=== PATIENT | male | born 2005 | race Caucasian/White ===

== ENCOUNTER 2023-02-27 21:43 | Emergency (ER) | payer OTHER, SELFPAY ==
[2023-02-27 22:03] VITALS: BP 137/86; PULSE 124; RESP 20; TEMP 36.8; O2SAT 99; BMI 28.2
[2023-02-27 22:47] LABS: MANUAL DIFF FLAG NO
[2023-02-27 22:49] LABS: Basophils Absolute Auto 0.1 X10*3/uL (0.0-0.2); Basophils Percent Auto 0.5 % (0-2); Eosinophils Absolute Auto 0.1 X10*3/uL (0.0-0.4); Eosinophils Percent Auto 0.5 % (0-4); Hematocrit 50.7 % (42.0-52.0); Hemoglobin 18.2 g/dl (14.0-18.0); Imm Gran Abs Auto 0.03 X10*3/uL (0.00-0.03); Imm Gran Pct Auto 0.3 % (0.0-0.4); Lymphocytes Absolute Auto 2.2 X10*3/uL (1.2-4.9); Lymphocytes Percent Auto 20.1 % (20-40); Mean Corpuscular HGB Conc 35.9 g/dl (31.0-36.0); Mean Corpuscular Hemoglobin 32.3 pg (27.0-33.0); Mean Corpuscular Volume 90.1 fL (80.0-98.0); Mean Platelet Volume 9.6 fL (9.4-12.4); Monocytes Absolute Auto 0.5 X10*3/uL (0.1-1.2); Monocytes Percent Auto 4.5 % (2-11); Neutrophils Absolute Auto 8.1 x10*3/uL (2.0-8.3); Neutrophils Percent Auto 74.1 % (45-73); Platelet Count 412 X10*3/uL (160-400); Red Blood Count 5.63 X10*6/uL (4.60-5.80); Red Cell Distribution Width 11.9 % (11.0-16.0); White Blood Count 10.9 X10*3/uL (4.8-10.8)
[2023-02-27 23:08] LABS: COVID-19 Test Negative (Negative); IDNOW Serial# 08D9AD1C
[2023-02-27 23:11] LABS: IDNOW Serial# BCCEAD1C; Influenza A Negative (Negative); Influenza B2 Negative (Negative)
[2023-02-27 23:20] LABS: Alanine Aminotransferase 15 U/L (0-40); Albumin Level 5.4 g/dL (3.5-5.0); Alkaline Phosphatase 109 U/L (39-117); Aspartate Amino Transferase 27 U/L (5-37); Bilirubin Direct 0.5 mg/dL (0.0-0.5); Bilirubin Total 1.4 mg/dL (0.0-1.0); Blood Urea Nitrogen 13 mg/dL (9-16); Calcium 10.4 mg/dL (8.4-10.2); Creatinine Clr Calc Pharmacy 86.1; Estimated Glomerular Filt Rate > 60; Glucose Random 82 mg/dL (60-115); Lipase 20 U/L (8-78)
[2023-02-27 23:36] LABS: Anion Gap 28 (12-20); Carbon Dioxide 8 mmol/L (22-29); Chloride 106 mmol/L (96-108); Potassium 4.1 mmol/L (3.3-5.1); Sodium 138 mmol/L (135-145)
--- NOTE | 2023-02-27 23:54 | PC.NURSE ---
RN to waiting room to pull patient back to the main er, pt not found to be in the waiting room and registration confirmed the patient Left as his mother (who was his primary ride) reported she has to be at work early. RN attempted to outreach the patient at the number listed in the chart; cell phone is not in service and the home phone there was not answer and a vm was left. MD kingston aware
== END 2023-02-27 23:38 | disposition left against medical advice (07) ==
PROVIDERS: Emergency Provider Emergency Medicine
DX: R11.2 Nausea with vomiting, unspecified (principal); R00.2 Palpitations; R10.9 Unspecified abdominal pain; Z20.822 Contact with and (suspected) exposure to COVID-19
CPT/HCPCS: 36415; 80048; 80076; 83690; 85025; 87502; 87635; 99281; 99283

== ENCOUNTER 2023-02-28 04:18 | Observation (INO) | payer OTHER, SELFPAY ==
--- NOTE | ~2023-02-28 | XR_ITS ---
EXAMINATION: XR CHEST CLINICAL INFORMATION: Febrile COMPARISON: None available. TECHNIQUE: Frontal view of the chest was obtained. FINDINGS: The lungs are clear with no focal consolidation. No evidence of pneumothorax, pulmonary edema, or pleural effusions. The cardiomediastinal silhouette is unremarkable. No acute osseous findings. XR/XR chest 1V IMPRESSION: No acute cardiopulmonary findings.
[2023-02-28 04:44] VITALS: BP 132/89; PULSE 106; RESP 18; TEMP 35.8; O2SAT 97; BMI 25.1
--- NOTE | 2023-02-28 05:11 | ED.NAVMDI ---
HPI - Nausea/Vomiting/Diarrhea General Chief complaint: Nausea/Vomiting/Diarrhea Stated complaint: Vomiting Time Seen by Provider: 02/28/23 05:10 Source: patient Mode of arrival: ambulatory Limitations: no limitations History of Present Illness HPI Narrative: Patient with history of cannabis abuse and vomiting disorder smoke marijuana 3 days ago and after that started vomiting multiple times with upper abdominal pain no diarrhea able take any p.o. fluids patient was triaged earlier but was not seen in the ER labs were done which showed bicarb of 8 patient was called to come back for IV fluid management and recheck patient is still not able to eat on anything all day Related Data Allergies Allergy/AdvReac Type Severity Reaction Status Date / Time No Known Allergies Allergy Verified 02/27/23 22:07 [No Known Allergies*] Review of Systems Review of Systems: Yes all other systems are reviewed and are negative [facility] Social History Social History Advance Directives: No Advance Directives Information Provided: Yes Physical Exam Vital Signs: Vital Signs: Last Vital Signs Temp 98.6 F 02/28/23 07:17 Pulse 116 H 02/28/23 07:17 Resp 18 02/28/23 07:17 BP 143/86 H 02/28/23 07:17 Pulse Ox 98 02/28/23 07:17 O2 Del Method Room Air 02/28/23 07:17 BMI result Body Mass Index 25.1 Appearance: Alert. Oriented X3. No acute distress. Eyes: No icterus ENT: Pharynx normal. Oral Mucosa moist Neck: Normal inspection. Neck supple. CVS: Normal heart rate and rhythm. Pulses normal. Respiratory: No respiratory distress. Equal air entry bilateral, no wheezing/rales/rhonchi Abdomen: Sof, epigastric tenderness ++ Bowel sounds are present, no mass palpable, no CVA tenderness Skin: Skin warm and dry. Normal skin color. Normal skin turgor. Extremities: No lower extremity edema. No calf tenderness Neuro: Oriented X 3. No motor deficit. Medications Administered Generic Name Dose Route Start Last Admin Trade Name Freq PRN Reason Stop Dose Admin Sodium Chloride 1,000 mls @ 999 mls/hr 02/28/23 06:32 02/28/23 06:35 Ns IV 02/28/23 07:32 999 mls/hr .Q1H1M ONE Administration Discontinued Medications Generic Name Dose Route Start Last Admin Trade Name Willian PRN Reason Stop Dose Admin Sodium Chloride 1,000 mls @ 999 mls/hr 02/28/23 05:11 02/28/23 06:36 Ns IV 02/28/23 06:11 Infused .Q1H1M ONE Infusion Lorazepam 1 mg 02/28/23 05:11 02/28/23 05:22 Lorazepam 2 Mg/Ml Vial IVPUSH 02/28/23 05:12 1 mg ONCE ONE Administration Prochlorperazine Edisylate 10 mg 02/28/23 05:12 02/28/23 05:21 Prochlorperazine Edisylate 10 Mg/2 Ml Vial IVPUSH 02/28/23 05:13 10 mg ONCE ONE Administration Medical Decision Making Medical Decision Making MDM Narrative: Patient metabolic acidosis secondary to vomiting secondary to cannabis abuse. Patient feeling much better now taking p.o. fluids recheck chemistry plan to discharge home if chemistry is normal Lab Data 02/28/23 07:14 Discharge Plan Discharge Clinical Impression: Gastroenteritis, Metabolic acidosis Patient Disposition: Still a Patient
[2023-02-28] MEDS: Prochlorperazine Edisylate 10 MG/2 ML VIAL IVPUSH (05:21)
[2023-02-28] MEDS: LORazepam 2 MG/ML VIAL 1 MG IVPUSH (05:22)
[2023-02-28] MEDS: 0.9 % Sodium Chloride 1,000 ML 999 ML IV ×2 (05:22→06:35)
[2023-02-28 07:17] VITALS: BP 143/86; PULSE 116; RESP 18; TEMP 37; O2SAT 98
[2023-02-28 07:48] LABS: Anion Gap 26 (12-20); Blood Urea Nitrogen 12 mg/dL (9-16); Calcium 9.1 mg/dL (8.4-10.2); Carbon Dioxide 11 mmol/L (22-29); Chloride 109 mmol/L (96-108); Creatinine Clr Calc Pharmacy 89.5; Estimated Glomerular Filt Rate > 60; Glucose Random 84 mg/dL (60-115); Potassium 5.4 mmol/L (3.3-5.1); Sodium 141 mmol/L (135-145)
--- NOTE | 2023-02-28 08:44 | PHA.MEDREC ---
Pharmacy Consult ? Medication Reconciliation Pharmacy has completed the medication reconciliation. Patient has stopped all medications, this included zoloft, hydroxyzine and famotidine.
[2023-02-28 09:25] LABS: Appearance Urine Clear; Color Urine Yellow; Glucose Urine UA Negative (Negative); Leukocyte Esterase Urine Negative (Negative); Nitrite Urine Negative (Negative); PH 5.5 (5.0-9.0); Specific Gravity - Urine 1.025 (1.005-1.025); UMIC TRIGGER UACC YES; Urine Blood Small (1+) (Negative); Urine Ketones >=160 mg/dL (Negative); Urine Protein 100 (2+) mg/dL (Neg-Trace)
[2023-02-28 09:34] LABS: Bacteria Urine None Seen (None Seen); Hyaline Casts Urine 0-2 /LPF (0-2); RBC Urine 0-2 /HPF (0-2); Squamous Epithelial Cell Urine 0-2 /HPF (0-2); WBC Urine 0-5 /HPF (0-5)
[2023-02-28 09:41] LABS: Osmolality, Serum 301 mosm/kg (281-305)
[2023-02-28] MEDS: Dextrose 5 % and 0.45 % NaCl 1,000 ML 200 ML IVCONT (09:43)
[2023-02-28 09:45] LABS: Amphetamine Screen Urine Not Detected (Not Detect); Barbiturates, Urine Not Detected (Not Detect); Benzodiazepines Screen Urine Not Detected (Not Detect); Cannabinoid Screen Urine POSITIVE (Not Detect); Cocaine Screen Urine Not Detected (Not Detect); Fentanyl, urine Not Detected (Not Detect); Opiate Screen Urine Not Detected (Not Detect); Phencyclidine Screen Urine Not Detected (Not Detect)
[2023-02-28 10:03] VITALS: BP 140/67; PULSE 125; RESP 18; TEMP 37.1; O2SAT 96
--- NOTE | 2023-02-28 11:26 | PM.IMHP ---
History of Present Illness Date of Service: 02/28/23 Attending physician on admission: Coco Cardenas Chief Complaint: Intractable nausea vomiting Pt is a 17-year-old male with a PMH significant for?cannabis abuse, anxiety, and depression who presents to the ED with a day and half of intractable nausea and vomiting. Patient states that he was an occasional user of marijuana for the past 5 years, but has been using all day, every day for the past five months. Developed intractable N/V a day and a half ago, has not been able to keep anything down including water. No hematemesis but has been vomiting black flecks. During this time has had occasional headache, abdominal pain, and diaphoresis, but does not currently have these complaints. Denies chest pain/pressure, palpitations. No SOB. Denies diarrhea. Pt has experienced similar symptoms once before but were less severe and did not require a trip to the ED. In the ED patient was tachycardic up to 125 and hypertensive up to 143/86. Initial labs were significant for bicarb of 8, anion gap of 28, creatinine of 1.41. VBG pH 7.30, HCO3 13. Tox screen positive only for marijuana. UA negative for UTI. Pt was treated with prochlorperazine, IVF, and lorazepam. Pt will be admitted to the hospital under observation on telemetry for treatment of cyclic vomiting syndrome likely secondary to chronic cannabis use. Review of Systems Review of Systems: Intractable nausea and vomiting Occasional headache, lightheadedness, diaphoresis, abdominal pain No chest pain/pressure, palpitations Denies SOB No fever, chills Denies hematemesis Yes all other systems are reviewed and are negative [facility] Social History Alcohol intake: never Patient Tobacco Use Status: Never used Tobacco Smoked in Last 30 Days: Yes Use of substances other than those prescribed or required for medical reasons: Yes Substance Use Type: Marijuana Substance Use Frequency: Daily Advance Directives: No Advance Directives Information Provided: Yes service: No Current occupational status: unemployed Meds Allergies Allergy/AdvReac Type Severity Reaction Status Date / Time No Known Allergies Allergy Verified 02/27/23 22:07 [No Known Allergies*] Active Medications: Current Medications Dextrose/Sodium Chloride (D51/2ns) 1,000 mls @ 200 mls/hr IVCONT .Q5H [facility] Last Admin: 02/28/23 09:43 Dose: 200 mls/hr Home Medications Medication Instructions Recorded Confirmed Last Taken Type No Known Home Meds 02/28/23 02/28/23 Unknown History Physical Exam Vital Signs and Narrative: Vital Signs: Last Vital Signs Temp 98.8 F 02/28/23 10:03 Pulse 125 H 02/28/23 10:03 Resp 18 02/28/23 10:03 BP 140/67 H 02/28/23 10:03 Pulse Ox 96 02/28/23 10:03 O2 Del Method Room Air 02/28/23 10:03 BMI result Body Mass Index 25.1 Constitutional: Alert, restless, in no acute distress. Mental Status: Oriented to person, place and time. Eyes: Pupils are equal, round, and reactive to light. Ear, Nose, and Throat: Oropharynx clear, mucous membranes moist. Ears and nose without deformities. Trachea midline. Respiratory: Clear to auscultation bilaterally. No wheezing, rales, or rhonchi. Cardiovascular: S1, S2 regular. No murmurs, rubs, or gallops. Gastrointestinal: Abdomen soft, non-tender, non-distended. Normal bowel sounds. Neurologic: Cranial nerves II-XII are grossly intact bilaterally. No focal neurological deficits. Moves all extremities spontaneously. Skin: Warm, dry. Extremities: No edema. Psychiatric: Normal mood and affect. Results Labs 02/28/23 07:14 Labs: Laboratory Results - last 24 hr 02/28/23 02/28/23 02/28/23 07:14 07:14 09:09 Anion Gap 26 H Estim Creat Clear Calc 89.5 Estimated GFR > 60 Random Glucose 84 Osmolality 301 Lactic Acid 2.0 Calcium 9.1 D Urine Color Urine Appearance Urine pH Ur Specific [place] Urine Protein Urine Glucose (UA) Urine Ketones Urine Blood Urine Nitrite Ur Leukocyte Esterase Urine RBC Urine WBC Ur Squamous Epith Cells Urine Bacteria Hyaline Casts Urine Opiates Screen Urine Fentanyl Screen Ur Barbiturates Screen Ur Phencyclidine Scrn Ur Amphetamines Screen U Benzodiazepines Scrn Urine Cocaine Screen U Marijuana (THC) Screen 02/28/23 02/28/23 09:09 09:09 Anion Gap Estim Creat Clear Calc Estimated GFR Random Glucose Osmolality Lactic Acid Calcium Urine Color Yellow Urine Appearance Clear Urine pH 5.5 Ur Specific [place] 1.025 Urine Protein 100 (2+) H Urine Glucose (UA) Negative Urine Ketones >=160 Urine Blood Small (1+) H Urine Nitrite Negative Ur Leukocyte Esterase Negative Urine RBC 0-2 Urine WBC 0-5 Ur Squamous Epith Cells 0-2 Urine Bacteria None Seen Hyaline Casts 0-2 Urine Opiates Screen Not Detected Urine Fentanyl Screen Not Detected Ur Barbiturates Screen Not Detected Ur Phencyclidine Scrn Not Detected Ur Amphetamines Screen Not Detected U Benzodiazepines Scrn Not Detected Urine Cocaine Screen Not Detected U Marijuana (THC) Screen POSITIVE H Assessment and Plan (1) Metabolic acidosis: Status: Acute (2) Cyclic vomiting syndrome: Status: Acute Plan Pt is a 17-year-old male with a PMH significant for?cannabis abuse, anxiety, and depression who presents to the ED with a day and half of intractable nausea and vomiting. Patient states that he was an occasional user of marijuana for the past 5 years, but has been using all day, every day for the past five months. Developed intractable N/V a day and a half ago, has not been able to keep anything down including water. Pt will be admitted to the hospital under observation on telemetry for treatment of cyclic vomiting syndrome likely secondary to chronic cannabis use. Cyclic vomiting syndrome Likely secondary to marijuana use, pt says has been smoking every day, all day for past five months Has experienced intractable nausea and vomiting for past day and a half Received prochlorperazine, , lorazepam IVF in ED Switch IVF to D5W sodium bicarb 150 meq Ondansetron p.r.n. Pepcid 20 b.i.d. Acetaminophen for pain Clear liquid diet for now, advance as tolerated Addiction medicine consult Pt strongly advised to stop using marijuana Metabolic acidosis VBG pH 7.30, HCO3 13 Secondary to dehydration d/t cyclic vomiting syndrome Initial serum carbon dioxide 8 with anion gap 28, improved to 11 with gap of 26 IVF: D5W sodium bicarb 150 meq Follow BMP ERIN Pt's creatinine 1.41 at time of presentation Likely secondary to dehydration from GI losses and decreased p.o. intake Pt received IVF in ED, creatinine improved to 1.24 Continue IVF Follow BMP Full Code Attending:?Dr. Cardenas DVT Prophylaxis: Lovenox Pt will require a hospitalization of at least two nights for treatment of? with . Pt will be admitted to the hospital under observation on telemetry for treatment of cyclic vomiting syndrome likely secondary to chronic cannabis use. Time Spent With Patient Time: Total time managing care of this patient today ____ minutes. Quality Stroke Does the patient have a stroke diagnosis?: No VTE Prior VTE?: No VTE Risk Level:: Medical - moderate - high VTE Device Contraindication: Treatment Not Indicated VTE Drug Contraindication: N/A - Med Ordered
[2023-02-28] MEDS: Sodium Bicarbonate 8.4% 150 MEQ in Dextrose 5 % 850 ML 100 MEQ IV (12:41)
[2023-02-28 12:50] VITALS: BP 108/57; PULSE 108; TEMP 36.8; O2SAT 97
[2023-02-28 12:51] LABS: VBG Base Excess -11.1 mmol/L; VBG HCO3 13 mmol/L (22-26); VBG pCO2 25 mmHg; VBG pO2 75 mmHg
[2023-02-28 12:58] LABS: Venous Blood Gas Refer to POC result
--- NOTE | 2023-02-28 13:51 | MHC.RECOVRN ---
Received Addiction Medicine consult for marijuana use. Chart reviewed and attempted to meet with pt. Pt sleeping, allowed to rest. Resources left at bedside, will follow up at a later time.
[2023-02-28] MEDS: Famotidine 20 MG TABLET PO ×2 (15:00→22:02)
[2023-02-28 17:22] VITALS: BP 123/58; PULSE 107; RESP 14; TEMP 36.3; O2SAT 99
[2023-02-28 17:22] LABS: Anion Gap 16 (12-20); Blood Urea Nitrogen 6 mg/dL (9-16); Calcium 9.3 mg/dL (8.4-10.2); Carbon Dioxide 18 mmol/L (22-29); Chloride 109 mmol/L (96-108); Creatinine Clr Calc Pharmacy 102.8; Estimated Glomerular Filt Rate > 60; Glucose Random 118 mg/dL (60-115); Potassium 4.2 mmol/L (3.3-5.1); Sodium 139 mmol/L (135-145)
[2023-02-28 17:28] VITALS: BMI 25.1
[2023-02-28 19:17] VITALS: BP 132/64; PULSE 117; RESP 14; TEMP 36.7; O2SAT 98
[2023-02-28] MEDS: Dextrose 5 % and 0.9 % NaCl 1,000 ML 100 ML IVCONT (19:27)
[2023-02-28] MEDS: Enoxaparin Sodium 40 MG/0.4 ML SYRINGE SUBCUT (21:58)
[2023-02-28 23:15] LABS: Anion Gap 14 (12-20); Blood Urea Nitrogen 4 mg/dL (9-16); Calcium 9.2 mg/dL (8.4-10.2); Carbon Dioxide 21 mmol/L (22-29); Chloride 108 mmol/L (96-108); Creatinine Clr Calc Pharmacy 112.2; Estimated Glomerular Filt Rate > 60; Glucose Random 122 mg/dL (60-115); Potassium 3.3 mmol/L (3.3-5.1); Sodium 140 mmol/L (135-145)
[2023-03-01] VITALS (7 sets, daily range): BP systolic 116–135; BP diastolic 59–82; PULSE 76–100; RESP 16–20; TEMP 36.7–37.4; O2SAT 99–100
--- NOTE | 2023-03-01 | ECG_ITS ---
Test Reason : doctor order Blood Pressure : / mmHG Vent. Rate : 089 BPM Atrial Rate : 089 BPM P-R Int : 110 ms QRS Dur : 106 ms QT Int : 328 ms P-R-T Axes : 000 033 209 degrees QTc Int : 399 ms Poor data quality, interpretation may be adversely affected Sinus rhythm with marked sinus arrhythmia with short MT Incomplete right bundle branch block ST & T wave abnormality, consider inferior ischemia Abnormal ECG No previous ECGs available Referred By: Coco Cardenas Electronically Signed By:
[2023-03-01] MEDS: Dextrose 5 % and 0.9 % NaCl 1,000 ML 100 ML IVCONT (05:22)
[2023-03-01 06:55] LABS: Anion Gap 12 (12-20); Blood Urea Nitrogen 3 mg/dL (9-16); Calcium 9.2 mg/dL (8.4-10.2); Carbon Dioxide 24 mmol/L (22-29); Chloride 110 mmol/L (96-108); Creatinine Clr Calc Pharmacy 107.8; Estimated Glomerular Filt Rate > 60; Glucose Random 114 mg/dL (60-115); Potassium 3.8 mmol/L (3.3-5.1); Sodium 142 mmol/L (135-145)
[2023-03-01] MEDS: Famotidine 20 MG TABLET PO ×2 (08:46→21:45)
[2023-03-01] MEDS: LORazepam 0.5 MG TABLET PO (09:10)
--- NOTE | 2023-03-01 10:25 | MHC.RECOVRN ---
This securities underwriter met w/ patient after addiction consult was placed. Patient was resting comfortably in bed, awake, alert. Patient reports first used cannabis age 12. Patient states occasional cannabis up until the pandemic 2019. Patient reports in 2019 smoking cannabis flower. Patient reports for past 5 months, increased smoking cannabis vape pen to daily. Patient states buys Cannabis from a friend who is 21 who purchases it from dispensary. Patient reports occasional edibles several times per year. Patient reports in the past, experienced nausea/vomitting/panick attacks daily in the a.m. Patients PCP recommended quitting cannabis, exercise and changing diet. Patient reports followed PCP advice for 2 months and felt great . Patient reports started smoking daily, then experiencing intractable nausea, vomiting 2 days [employer]COMM[employer]. Patient reports goal is to not use cannabis and quit. Harm reduction strategies reviewed, cannabis hyperemesis syndrome reviewed, supports reviewed. Patient verbalized understanding, supports left at bedside. Patient encouraged to call with any questions/concerns.
--- NOTE | 2023-03-01 10:37 | MHC.CM.PN ---
EMR REVIEWED, CM MET W/PT WHO REPORTS HE LIVES W/HIS MOM AND SISTER, IS INDEP W/ALL CARE AND DENIES USE OF DME/SERVICES, NO SERVICES ANTICIPATED AND PT HAS BEEN EDUCATED ON AND COMPLETED A HCP NAMING HIS MOTHER LIZZETTE JETER [phone] HIS HCA, NO ALTERNATE CHOSEN AT THIS TIME. PT HAS MET W/SPUDDER AND PROVIDED W/OUTSIDE RESOURCES. PT VERIFIES PCP IS AT [facility] HOWEVER DOES NOT RECALL NAME AND PFIZER X2. DCP: HOME NO SERVIES W/SISTER FOR TRANSPORT
--- NOTE | 2023-03-01 11:18 | P.PNIM_ITS ---
Subjective Subjective Date of Service: 03/02/23 Interval History: Intractable nausea vomiting, tachycardia Review of Systems seems somwhat anxious nauseated denies any chest pain or sob Physical Exam Vital Signs: Vital Signs: Last Vital Signs Temp 99.0 F 03/01/23 07:41 Pulse 80 03/01/23 07:41 Resp 20 03/01/23 07:41 BP 123/62 03/01/23 07:41 Pulse Ox 99 03/01/23 07:41 O2 Del Method Room Air 03/01/23 07:41 BMI result Body Mass Index 25.1 Appearance: Alert.? Oriented X3.anxious cvs: rrr, [id number] , mild tachy res: clear to auscultation ,no rhonchii or wheezing abd: no rebound or guarding ,nt, bs present. ext pulses present , no cyanosis. neuro: axo3 , nonfocal. Objective Data Active Medications Acetaminophen (Acetaminophen 325 Mg Tablet) 650 mg PO Q6H PRN PRN Reason: Pain, Mild (Pain Scale 1-3) Enoxaparin Sodium (Enoxaparin Sodium 40 Mg/0.4 Ml Syringe) 40 mg SUBCUT Q24H [facility] Last Admin: 02/28/23 21:58 Dose: 40 mg Documented By: ARMSTRH Famotidine (Famotidine 20 Mg Tablet) 20 mg PO BID [facility] Last Admin: 03/01/23 08:46 Dose: 20 mg Documented By: HILARIO Lactated Ringer's (Lr) 1,000 mls @ 100 mls/hr IVCONT .Q10H [facility] Ondansetron HCl (Ondansetron Hcl 4 Mg/2 Ml Vial) 4 mg IVPUSH Q8H PRN PRN Reason: Nausea and Vomiting Sodium Chloride (0.9 % Sodium Chloride Flush 3 Ml Syringe) 3 ml IVFLUSH QSHIFT [facility] Last Admin: 03/01/23 08:40 Dose: Not Given Documented By: HILARIO Non-Admin Reason: IV Running Labs 03/01/23 06:29 Labs: Laboratory Results - last 24 hr 02/28/23 02/28/23 02/28/23 12:39 16:56 22:35 VBG pH 7.30 L VBG pCO2 25 VBG pO2 75 VBG HCO3 13 L VBG O2 Saturation 95.0 VBG Base Excess -11.1 Anion Gap 16 14 Estim Creat Clear Calc 102.8 112.2 Estimated GFR > 60 > 60 Random Glucose 118 H 122 H Calcium 9.3 9.2 03/01/23 06:29 VBG pH VBG pCO2 VBG pO2 VBG HCO3 VBG O2 Saturation VBG Base Excess Anion Gap 12 Estim Creat Clear Calc 107.8 Estimated GFR > 60 Random Glucose 114 Calcium 9.2 Assessment and Plan (1) Sinus tachycardia: Status: Acute (2) Cyclic vomiting syndrome: Status: Acute Plan 17-year-old male with a PMH significant for?cannabis abuse, anxiety, and depression who presents to the ED with a day and half of intractable nausea and vomiting. Patient states that he was an occasional user of marijuana for the past 5 years, but has been using all day, every day for the past five months. Developed intractable N/V a day and a half ago, has not been able to keep anything down including water. Pt will be admitted to the hospital under observation on telemetry for treatment of cyclic vomiting syndrome likely secondary to chronic cannabis use. Cyclic vomiting syndrome Likely secondary to marijuana use, pt says has been smoking every day, all day for past five months Has experienced intractable nausea and vomiting for past day and a half still feels nauseated , anxious ,mild tachy still could not tolertae po diet continue hydration iv, antiemetic Addiction medicine consult,Pt strongly advised to stop using marijuana Metabolic acidosis-multifactorial Secondary to dehydration d/t cyclic vomiting syndrome, startvation related imrpoving with hydration ERIN Pt's creatinine 1.41 at time of presentation seems to improved , contine hydration Follow BMP tachycaria -multifactorial: Dehydration, cyclic vomiting syndrome, anxiety, marijuana use Continue hydration, check TSH level. ekg Full Code need continued stay- treatment of cyclic vomiting syndrome likely secondary to chronic cannabis use-need hydration , antieemtic ,unable to take regular food yet. Time Spent With Patient Time: Total time managing care of this patient today ____ minutes. Quality Stroke Does the patient have a stroke diagnosis?: No VTE Prior VTE?: No VTE Risk Level:: Medical - moderate - high VTE Device Contraindication: Treatment Not Indicated VTE Drug Contraindication: N/A - Med Ordered
[2023-03-01 12:00] LABS: Thyroid Stimulating Hormone 1.21 uIU/mL (0.32-4.0)
[2023-03-01] MEDS: Lactated Ringers 1,000 ML 100 ML IVCONT (13:05)
--- NOTE | 2023-03-01 17:50 | PC.NURSE ---
Patient loss iv access. refusing new iv insertion. notified
[2023-03-01] MEDS: Enoxaparin Sodium 40 MG/0.4 ML SYRINGE SUBCUT (21:45)
--- NOTE | 2023-03-02 | ECG_ITS ---
Test Reason : tachycardia Blood Pressure : / mmHG Vent. Rate : 075 BPM Atrial Rate : 075 BPM P-R Int : 114 ms QRS Dur : 106 ms QT Int : 380 ms P-R-T Axes : -18 063 029 degrees QTc Int : 424 ms Normal sinus rhythm with sinus arrhythmia Normal ECG When compared with ECG of 01-MAR-2023 11:36, Vent. rate has decreased BY 37 BPM T wave inversion no longer evident in Lateral leads Vent. rate has decreased Referred By: Coco Cardenas Electronically Signed By:ISSA AGUIRRE MD
[2023-03-02] MEDS: diphenhydrAMINE HCL 25 MG CAPSULE 50 MG PO (02:03)
[2023-03-02 04:59] VITALS: BP 126/73; PULSE 91; RESP 18; TEMP 36.8; O2SAT 99
[2023-03-02 07:25] VITALS: BP 128/68; PULSE 86; RESP 20; TEMP 36.8; O2SAT 99
[2023-03-02] MEDS: Famotidine 20 MG TABLET PO ×2 (08:31→20:18)
[2023-03-02] MEDS: hydrOXYzine HCL 25 MG TABLET PO (09:27)
[2023-03-02] MEDS: LORazepam 0.5 MG TABLET PO (09:27)
[2023-03-02 11:05] VITALS: BP 127/60; PULSE 80; RESP 20; TEMP 36.9; O2SAT 100
[2023-03-02] MEDS: Lactated Ringers 1,000 ML 150 ML IVCONT ×2 (11:08→17:29)
--- NOTE | 2023-03-02 11:15 | P.CONCA_ITS ---
History of Present Illness History of Present Illness Date of Service: 03/02/23 Requesting physician: Coco Cardenas Consult reason: other (Orthostatic tachycardia.) Chief complaint: Intractable nausea and vomiting Narrative: I was consulted to see Jamie in cardiology consultation today. He is a 17-year-old healthy young man with history of anxiety. Recently he had started abusing marijuana. Initially was smoking occasionally but then gradually smoking over the last many months almost on a daily basis. He came to the hospital with intractable vomiting syndrome with metabolic acidosis and dehydration. He has received fluid but despite that he remains with orthostatic tachycardia. He denies any symptoms of palpitation all the says that when his heart rate spikes he does get a low short of breath. He has never had any problems like this in the past. He has no prior cardiac history or any family history that is concerning. He at rest supine is heart rate in the 80s. With walking short distances heart rate short up to 160 beats per minute, sinus tachycardia. He denies any shortness of breath at rest. He has no recent cardiac symptoms. Review of Systems Constitutional: Constitutional: Reports no additional constitutional complaints Cardiovascular: Cardiovascular: Reports no additional cardiovascular complaints, Reports rapid heart rate, Denies lightheadedness, Denies Loss of Consciousness and Denies palpitations Respiratory: Respiratory: Reports no additional respiratory complaints Gastrointestinal: Gastrointestinal: Reports vomiting Musculoskeletal: Musculoskeletal: Reports no additional musculoskeletal complaints Integumentary/Breasts: Skin/Breast: Reports system reviewed and no additional complaints, except as docu Neurologic: Reports system reviewed and no additional complaints, except as documented Endocrine: Endocrine: Denies palpitations [facility] Social History Social History Alcohol intake: never Patient Tobacco Use Status: Never used Tobacco Smoked in Last 30 Days: Yes Use of substances other than those prescribed or required for medical reasons: Yes Substance Use Type: Marijuana Substance Use Frequency: Daily Advance Directives: No Advance Directives Information Provided: Yes service: No Current occupational status: unemployed Meds Allergies Allergy/AdvReac Type Severity Reaction Status Date / Time No Known Allergies Allergy Verified 02/27/23 22:07 [No Known Allergies*] Active Medications: Current Medications Acetaminophen (Acetaminophen 325 Mg Tablet) 650 mg PO Q6H PRN PRN Reason: Pain, Mild (Pain Scale 1-3) Enoxaparin Sodium (Enoxaparin Sodium 40 Mg/0.4 Ml Syringe) 40 mg SUBCUT Q24H [facility] Last Admin: 03/01/23 21:45 Dose: 40 mg Famotidine (Famotidine 20 Mg Tablet) 20 mg PO BID [facility] Last Admin: 03/02/23 08:31 Dose: 20 mg Lactated Ringer's (Lr) 1,000 mls @ 150 mls/hr IVCONT .Q6H40M [facility] Last Admin: 03/02/23 11:08 Dose: 150 mls/hr Ondansetron HCl (Ondansetron Hcl 4 Mg/2 Ml Vial) 4 mg IVPUSH Q8H PRN PRN Reason: Nausea and Vomiting Sodium Chloride (0.9 % Sodium Chloride Flush 3 Ml Syringe) 3 ml IVFLUSH QSHIFT [facility] Last Admin: 03/02/23 08:26 Dose: Not Given Home Medications Medication Instructions Recorded Confirmed Last Taken Type No Known Home Meds 02/28/23 02/28/23 Unknown History Physical Exam Vital Signs: Vital Signs: Last Vital Signs Temp 98.4 F 03/02/23 11:05 Pulse 80 03/02/23 11:05 Resp 20 03/02/23 11:05 BP 127/60 03/02/23 11:05 Pulse Ox 100 03/02/23 11:05 O2 Del Method Room Air 03/02/23 11:05 BMI result Body Mass Index 25.1 Const: General: cooperative, comfortable, no acute distress, well developed, alert and awake Nutritional Appearance: well nourished and thin Orientation/consciousness: patient oriented x3 Limitations: no limitations HEENT: Head: Yes normocephalic and Yes atraumatic Neck: Neck: Yes trachea midline, Yes supple and Yes no JVD Chest: Chest palpation & inspection: normal inspection of the chest Resp: Effort & Inspection: normal respiratory effort Auscultation: clear to auscultation bilaterally Cardio: Jugular venous distension: no JVD Palpation: normal PMI Rate: regular rate Rhythm: regular rhythm Heart sounds: S1 normal heart sound present, S2 normal heart sound present, no click, no gallops, no murmurs and no rubs GI: Auscultation: normal bowel sounds Skin: General skin exam: no rashes or lesions noted Neuro: General: patient oriented x3 and no focal motor deficits Extrem: General: Yes no clubbing, cyanosis or edema Objective Labs and Meds 03/01/23 06:29 Lab results: Laboratory Results - last 24 hr 03/01/23 06:29 TSH 1.21 ECG Interpretation: EKG shows normal sinus rhythm with sinus arrhythmia. Assessment and Plan (1) Sinus tachycardia: Status: Acute Patient with orthostatic sinus tachycardia which appears to be most likely related to intravascular volume depletion from significant vomiting syndrome. Could be also contributed by anxiety. He is currently getting antianxiety therapy. I would hydrate him aggressively with IV fluid with RL was in next 24 hours. If persists with tachycardia can consider other etiology such as venous thromboembolic disease although very unlikely. Can run a D-dimer on him. TSH within normal limits. Discussed with him or dangers of abusing marijuana and causing cyclic a wall meeting syndrome and leading to hospitalization. He understands. He said he is going to try to get his life back on track. Consider consultation with addiction medicine. Will sign of the case at this point time. Thank you for allowing me to partake in his care Time Spent With Patient Time: Total time managing care of this patient today ____ minutes. Procedures Date of Service Date of Service: 03/02/23
--- NOTE | 2023-03-02 13:38 | P.CNPS_ITS ---
History of Present Illness Date of Service: 03/02/2023 Chief Complaint: Intractable nausea and vomiting Reason for Consult: anxiety Sources of Information: patient interviewed and chart reviewed HPI Narrative: Admitted with cyclical vomiting in context of excessive MJ use in recent months. Physically doing better. Able to tolerate some PO. Some concern ref anxiety. Pt pleasant and engaged. Endorses depression that lasts for weeks, last was 9 months ago. With low energy, motivation, interest, sleep, increased guilt. No SI. Anxiety that is more self conscious in nature, but also health anxiety. Guilt as dropped out of school 2 years ago and uncertain about future, getting GED, work etc.. Enjoys playing video games and his pets at home with mom and sister. MJ use daily x 5 months. Occ alcohol. No psychosis. No main. Past Psych: Endorsed history of depression and anxiety as freshman with SI (never planned or acted) and some self harm. None since then. Generalised anxiety in school, which has improved. ADHD as kid. Social: Home with mom and sister. Dropped out of school 2 years ago and uncertain about future, getting GED, work etc.. Enjoys playing video games and his pets at home Labs noted. QTc <450 Past Psychiatric History: Endorsed history of depression and anxiety as freshman with SI (never planned or acted) and some self harm. None since then. Generalised anxiety in school, which has improved. ADHD as kid. Medical Evaluation Reviewed: Yes Personal & Social History: Home with mom and sister. Dropped out of school 2 years ago and uncertain about future, getting GED, work etc.. Enjoys playing video games and his pets at home Review of Systems Review of Systems nausea improving [facility] Family History: bipolar, ADHD and autism Social History: Home with mom and sister. Dropped out of school 2 years ago and uncertain about future, getting GED, work etc.. Enjoys playing video games and his pets at home Substance History: MJ Diagnostics Vital Signs (24Hr): Vital Signs - 24 hr 03/01/23 15:09 03/01/23 20:00 03/01/23 23:52 Temperature 98.0 F 98.5 F 98.9 F Pulse Rate 95 87 76 Respiratory Rate 20 18 18 Blood Pressure 116/62 129/61 135/64 Pulse Oximetry 99 99 99 Oxygen Delivery Method Room Air Room Air Room Air 03/02/23 04:59 05/07/23 07:25 03/02/23 11:05 Temperature 98.3 F 98.3 F 98.4 F Pulse Rate 91 86 80 Respiratory Rate 18 20 20 Blood Pressure 126/73 128/68 127/60 Pulse Oximetry 99 99 100 Oxygen Delivery Method Room Air Room Air Room Air BMI result Body Mass Index 25.1 Labs 03/01/23 06:29 Labs: Laboratory Results - last 48 hr 02/28/23 02/28/23 03/01/23 16:56 22:35 06:29 Sodium 139 140 142 Potassium 4.2 D 3.3 D 3.8 Chloride 109 H 108 110 H Carbon Dioxide 18 L 21 L 24 Anion Gap 16 14 12 BUN 6 L 4 L 3 L Creatinine 1.08 0.99 1.03 Estim Creat Clear Calc 102.8 112.2 107.8 Estimated GFR > 60 > 60 > 60 Random Glucose 118 H 122 H 114 Calcium 9.3 9.2 9.2 TSH 1.21 Mental Status Exam Mental Status Exam Patient Appearance: Well Grooomed Patient Orientation: Person, Place, Time and Situation Level of Consciousness: Awake and Appropriate Patient Behavior: Appropriate, Cooperative and Good Eye Contact Mood Description: Withdrawn Affect Description: Calm Patient Cognition Impaired: No Ability to Follow Directions: Good Speech Pattern: Clear Memory Description: Intact Hallucinations: None Delusions: Not Present Thought Process: Intact Thought Content: positive for Intact Depressive Symptoms: Increased Anxiety, Insomnia, Feelings of Worthlessness and Hopelessness Judgement: Fair Medications Medications Current Medications Acetaminophen (Acetaminophen 325 Mg Tablet) 650 mg PO Q6H PRN PRN Reason: Pain, Mild (Pain Scale 1-3) Enoxaparin Sodium (Enoxaparin Sodium 40 Mg/0.4 Ml Syringe) 40 mg SUBCUT Q24H [facility] Last Admin: 03/01/23 21:45 Dose: 40 mg Famotidine (Famotidine 20 Mg Tablet) 20 mg PO BID [facility] Last Admin: 03/02/23 08:31 Dose: 20 mg Lactated Ringer's (Lr) 1,000 mls @ 150 mls/hr IVCONT .Q6H40M [facility] Last Admin: 03/02/23 11:08 Dose: 150 mls/hr Ondansetron HCl (Ondansetron Hcl 4 Mg/2 Ml Vial) 4 mg IVPUSH Q8H PRN PRN Reason: Nausea and Vomiting Sodium Chloride (0.9 % Sodium Chloride Flush 3 Ml Syringe) 3 ml IVFLUSH QSHIFT [facility] Last Admin: 03/02/23 08:26 Dose: Not Given Allergies Allergies Allergy/AdvReac Type Severity Reaction Status Date / Time No Known Allergies Allergy Verified 02/27/23 22:07 [No Known Allergies*] Assessment & Plan Assessment & Plan (1) Major depression: Status: Acute Code(s): F32.9 - Major depressive disorder, single episode, unspecified Assessment and Plan: History of MDD and cyclical vomiting and MJ misuse. Would rec: 1) zoloft 25mg daily for 2 weeks, then 50mg daily- this is to minimize GI upset so gradual dose increase given presentation 2) Thorazine 12.5-25mg as needed 2 times per day for anxiety/nausea i.e. can help with cyclical vomiting also 3) Pt educated opn and agreed with above recs 4) Can follow up with PCP for ongoing maintenance of meds. Total time managing care of this patient today ____ minutes. Patient educated on: diagnosis and medication risk/benefits Informed Consent: understands
[2023-03-02] MEDS: Sertraline HCL 25 MG TABLET PO (14:39)
[2023-03-02 15:41] VITALS: BP 124/63; PULSE 77; RESP 18; TEMP 37.2; O2SAT 98
[2023-03-02 19:56] VITALS: BP 114/68; PULSE 81; RESP 20; TEMP 37.3; O2SAT 96
[2023-03-02] MEDS: Enoxaparin Sodium 40 MG/0.4 ML SYRINGE SUBCUT (20:18)
[2023-03-02 23:12] VITALS: BP 132/72; PULSE 83; RESP 18; TEMP 37.7; O2SAT 99
[2023-03-02] MEDS: Acetaminophen 325 MG TABLET 650 MG PO (23:43)
[2023-03-03] MEDS: Lactated Ringers 1,000 ML 150 ML IVCONT ×2 (00:23→08:18)
[2023-03-03] MEDS: 0.9 % Sodium Chloride Flush 3 ML SYRINGE IVFLUSH (00:29)
[2023-03-03 01:11] VITALS: PULSE 93; RESP 18; TEMP 37.1
[2023-03-03] MEDS: Piperacillin Sodium/Tazobactam 3.375 GM in 0.9 % Sodium Chloride 50 ML IV (01:24)
[2023-03-03 01:57] LABS: MANUAL DIFF FLAG NO
[2023-03-03 01:59] LABS: Basophils Percent Auto 0.6 % (0-2); Eosinophils Percent Auto 0.6 % (0-4); Hematocrit 45.6 % (42.0-52.0); Hemoglobin 16.2 g/dl (14.0-18.0); Imm Gran Abs Auto 0.01 X10*3/uL (0.00-0.03); Imm Gran Pct Auto 0.2 % (0.0-0.4); Lymphocytes Absolute Auto 3.1 X10*3/uL (1.2-4.9); Lymphocytes Percent Auto 49.1 % (20-40); Mean Corpuscular HGB Conc 35.5 g/dl (31.0-36.0); Mean Corpuscular Hemoglobin 32.1 pg (27.0-33.0); Mean Corpuscular Volume 90.3 fL (80.0-98.0); Mean Platelet Volume 10.3 fL (9.4-12.4); Monocytes Absolute Auto 0.4 X10*3/uL (0.1-1.2); Monocytes Percent Auto 6.5 % (2-11); Neutrophils Absolute Auto 2.7 x10*3/uL (2.0-8.3); Platelet Count 287 X10*3/uL (160-400); Red Blood Count 5.05 X10*6/uL (4.60-5.80); Red Cell Distribution Width 11.9 % (11.0-16.0); White Blood Count 6.3 X10*3/uL (4.8-10.8)
[2023-03-03 02:10] LABS: Lactic Acid 1.4 mmol/L (0.5-2.0)
[2023-03-03 02:13] LABS: Anion Gap 15 (12-20); Blood Urea Nitrogen 4 mg/dL (9-16); Calcium 9.7 mg/dL (8.4-10.2); Carbon Dioxide 25 mmol/L (22-29); Chloride 106 mmol/L (96-108); Creatinine Clr Calc Pharmacy 127.6; Estimated Glomerular Filt Rate > 60; Glucose Random 105 mg/dL (60-115); Potassium 3.1 mmol/L (3.3-5.1); Sodium 143 mmol/L (135-145)
[2023-03-03 02:37] LABS: Appearance Urine Clear; Color Urine Yellow; Glucose Urine UA Negative (Negative); Leukocyte Esterase Urine Negative (Negative); Nitrite Urine Negative (Negative); Specific Gravity - Urine 1.015 (1.005-1.025); Urine Blood Negative (Negative); Urine Ketones Negative (Negative); Urine Protein Negative (Neg-Trace)
[2023-03-03 03:28] VITALS: BP 128/68; PULSE 79; RESP 20; TEMP 37.2; O2SAT 96
--- NOTE | 2023-03-03 05:30 | PM.EVENT ---
Event Note Date of Service: 03/03/23 Event Note: pt with low grade fever. ua -ve, cxr negative. blood cultures drawn . given one dose of ax. hold off on further abx unless develops another fever., Time Spent With Patient Time: Total time managing care of this patient today ____ minutes.
[2023-03-03 07:13] VITALS: BP 133/84; PULSE 85; RESP 20; TEMP 36.6; O2SAT 99
[2023-03-03] MEDS: Famotidine 20 MG TABLET PO (08:18)
[2023-03-03] MEDS: Sertraline HCL 25 MG TABLET PO (08:18)
[2023-03-03] MEDS: Potassium Chloride Packet 20 MEQ PACKET 40 MEQ PO (08:18)
--- NOTE | 2023-03-03 09:40 | P.DS_ITS ---
DS: Providers Provider Date of Service: 03/03/23 Date of admission: 02/28/23 11:55 Date of discharge: 03/03/23 Primary care physician: Unknown Physician Consults: 02/28/23 12:04 Addiction Medicine Routine Consulting Provider: Addiction Covering Reason for consultation: Cyclic vomiting syndrome d/t heavy marijuana use 03/02/23 09:04 Consult to Psychiatry Routine Consulting Provider: Psych Covering Reason for consultation: anxiety Has provider been notified: No 03/02/23 09:05 Consult to Cardiology Routine Consulting Provider: [facility] Cardiovascular Services Reason for consultation: sinus tachycardia -hr goes 160-170 Has provider been notified: No Attending physician on discharge: Coco Cardenas Discharging clinician: Coco Cardenas DS: Diagnosis Discharge Diagnosis (1) Major depression: Status: Acute (2) Sinus tachycardia: Status: Acute (3) Cyclic vomiting syndrome: Status: Acute DS: Summary Hospital Course Hospital Course: 17-year-old male with a PMH significant for?cannabis abuse, anxiety, and depression who presents to the ED with a day and half of intractable nausea and vomiting. Patient states that he was an occasional user of marijuana for the past 5 years, but has been using all day, every day for the past five months. Developed intractable N/V a day and a half ago, has not been able to keep anything down including water. No hematemesis but has been vomiting black flecks. During this time has had occasional headache, abdominal pain, and diaphoresis, but does not currently have these complaints.? Denies chest pain/pressure, palpitations. No SOB. Denies diarrhea.? Pt has experienced similar symptoms once before but were less severe and did not require a trip to the ED. In the ED patient was tachycardic up to 125 and hypertensive up to 143/86.? Initial labs were significant for bicarb of 8, anion gap of 28, creatinine of 1.41.? VBG pH 7.30, HCO3 13. Tox screen positive only for marijuana.? UA negative for UTI. Pt was treated with prochlorperazine, IVF, and lorazepam. Pt will be admitted to the hospital under observation on telemetry for treatment of cyclic vomiting syndrome likely secondary to chronic cannabis use. hospital course: Patient was admitted for persistent nausea vomiting likely secondary to cyclic vomiting syndrome due to marijuana. Started on hydration, antiemetics and diet slowly advanced from clear liquid to regular patient is tolerating diet and feeling better.. Anxiety: Used to take the hydroxyzine , will give limited supply for hydroxyzine and needs to follow up outpatient with psych Has sinus tachycardia-TSH normal. potassium is boderline low , given po potassium supply, please check bmp outpatient. Patient with persistent tachycardic specially with walking( improving somewhat with hydration), but asymptomatic-further workup was offered(cardiac and D- dimer): Patient and his mother refused for further sinus and otherwise risk of leaving against medical advise arrhythmia, possible thromboembolism including discussed in length -they still wants to leave .both [facility] staff is present during over conversation. Above management discussed the patient detail and he understand and in agreement with the above plan, time spent 50 minute . Time Spent with Patient Time attestation: Total time managing care of this patient today ____ minutes. Discharge coordination time: Greater than 30 minutes Quality: Safe Use of Opioids Does Pt have an Active Cancer Diagnosis on the Problem List?: No Quality: Stroke Does the patient have a stroke diagnosis?: No Physical Exam Vital Signs: Vital Signs: Last Vital Signs Temp 97.9 F 03/03/23 07:13 Pulse 85 03/03/23 07:13 Resp 20 03/03/23 07:13 BP 133/84 03/03/23 07:13 Pulse Ox 99 03/03/23 07:13 O2 Del Method Room Air 03/03/23 07:13 BMI result Body Mass Index 25.1 Appearance: Alert.? Oriented X3.anxious cvs: rrr, [id number] , mild tachy res: clear to auscultation ,no rhonchii or wheezing abd: no rebound or guarding ,nt, bs present. ext pulses present , no cyanosis. neuro: axo3 , nonfocal. DS: Data Data Completed and Pending Labs on day of discharge: Laboratory Results - last 24 hr 03/03/23 03/03/23 03/03/23 01:34 01:34 01:34 WBC 6.3 RBC 5.05 Hgb 16.2 Hct 45.6 MCV 90.3 MCH 32.1 MCHC 35.5 RDW 11.9 Plt Count 287 D MPV 10.3 Immature Gran % (Auto) 0.2 Neut % (Auto) 43.0 L Lymph % (Auto) 49.1 H [place] % (Auto) 6.5 Eos % (Auto) 0.6 Baso % (Auto) 0.6 Lymph # (Auto) 3.1 [place] # (Auto) 0.4 Eos # (Auto) 0.0 Baso # (Auto) 0.0 Abs Immat Gran (auto) 0.01 Absolute Neuts (auto) 2.7 Absolute Nucleated RBC 0.000 Nucleated RBC % (auto) 0.0 Sodium 143 Potassium 3.1 L Chloride 106 Carbon Dioxide 25 Anion Gap 15 BUN 4 L Creatinine 0.87 Estim Creat Clear Calc 127.6 Estimated GFR > 60 Random Glucose 105 Lactic Acid 1.4 Calcium 9.7 Magnesium 2.0 Urine Color Urine Appearance Urine pH Ur Specific [place] Urine Protein Urine Glucose (UA) Urine Ketones Urine Blood Urine Nitrite Ur Leukocyte Esterase 03/03/23 02:25 WBC RBC Hgb Hct MCV MCH MCHC RDW Plt Count MPV Immature Gran % (Auto) Neut % (Auto) Lymph % (Auto) [place] % (Auto) Eos % (Auto) Baso % (Auto) Lymph # (Auto) [place] # (Auto) Eos # (Auto) Baso # (Auto) Abs Immat Gran (auto) Absolute Neuts (auto) Absolute Nucleated RBC Nucleated RBC % (auto) Sodium Potassium Chloride Carbon Dioxide Anion Gap BUN Creatinine Estim Creat Clear Calc Estimated GFR Random Glucose Lactic Acid Calcium Magnesium Urine Color Yellow Urine Appearance Clear Urine pH 8.0 Ur Specific [place] 1.015 Urine Protein Negative Urine Glucose (UA) Negative Urine Ketones Negative Urine Blood Negative Urine Nitrite Negative Ur Leukocyte Esterase Negative Imaging Chest x-ray: Radiologist's impression: ITS Impressions Chest X-Ray 03/03/23 01:26 IMPRESSION: No acute cardiopulmonary findings. Discharge Plan Discharge Patient Disposition: Left Against Medical Advice Discharge Diagnosis: intractable nausea/vomiting secondary cyclic vomiting syndrome related marijuana. Referrals: Physician,Unknown J [Primary Care Provider] - 1 Week Discharge Medications: New famotidine 20 mg tablet 20 mg PO BEDTIME Qty: 10 0RF hydroxyzine HCl 25 mg tablet 25 mg PO BID PRN (Reason: anxiety) Qty: 14 0RF chlorpromazine 25 mg Tablet 25 mg PO BID PRN (Reason: nausea/anxiety) Qty: 10 0RF sertraline 25 mg Tablet 25 mg PO DAILY Qty: 30 0RF potassium chloride 10 mEq capsule, extended release 10 meq PO DAILY Qty: 3 0RF Discharge Orders: Discharge Order (Routine); Ordered 03/03/23 Ordered By: Coco Cardenas Diet: Advance to usual diet Activity on Discharge: As tolerated Stand Alone Forms: Patient Portal Discharge page Care Plan Goals: Patient was admitted for persistent nausea vomiting likely secondary to cyclic vomiting syndrome due to marijuana. Started on hydration, antiemetics and diet slowly advanced from clear liquid to regular patient is tolerating diet and feeling better.. Anxiety: Used to take the hydroxyzine , will give limited supply for hydroxyzine and needs to follow up outpatient with psych Has sinus tachycardia-TSH normal. potassium is boderline low , given po potassium supply, please check bmp outpatient. Patient with persistent tachycardic specially with walking( improving somewhat with hydration), but asymptomatic-further workup was offered(cardiac and D- dimer): Patient and his mother refused for further sinus and otherwise risk of leaving against medical advise arrhythmia, possible thromboembolism including discussed in length -they still wants to leave .both [facility] staff is present during over conversation. Health Concerns: As above. Plan of Treatment: As above. Assessment: As above.
--- NOTE | 2023-03-03 09:41 | MHC.CM.PN ---
Patient has left AMA.
--- NOTE | 2023-03-03 09:41 | PC.NURSE ---
Patient expressed desire to leave AMA, refused IVF asked to have IV removed. Dr. Cardenas was at bedside, explained danger of leaving AMA. Patient's mother came to pick him up, Dr. Cardenas came up and discussed with patient and patient's mother possible adverse reaction, danger of leaving without additional testings. Patient signed AMA form and left the unit ambulating accompanied by his mother.
== END 2023-03-03 09:15 | disposition left against medical advice (07) ==
LOC: HO.ED 08:36 → HO.EDOVER 12:06 → HO.IMC 16:32
PROVIDERS: Internal Medicine; Admitting Provider Student in an Organized Health Care Education/Training Program; Emergency Provider Emergency Medicine; Visit Provider Internal Medicine
DX: R11.15 Cyclical vomiting syndrome unrelated to migraine (principal); F12.90 Cannabis use, unspecified, uncomplicated; N17.9 Acute kidney failure, unspecified; R00.0 Tachycardia, unspecified; F32.9 Major depressive disorder, single episode, unspecified; E87.20 Acidosis, unspecified
CPT/HCPCS: 36415; 71045; 80048; 80307; 81001; 81003; 82803; 83605; 83735; 83930; 84443; 85025; 87040; 93005; 96361; 96365; 96366; 96367; 96372; 96375; 99222; 99285; J1650; J2060; J2543